=== PATIENT | female | born 1960 | race Caucasian/White ===

== ENCOUNTER 2022-07-16 08:03 | Outpatient (CLI) | payer OTHER, SELFPAY | END 2022-07-16 08:04 | disposition home or self-care (01) | LOC: LKVREF 08:04 | PROVIDERS: Visit Provider Physician Assistant Medical | DX: I10 Essential (primary) hypertension (principal); E66.9 Obesity, unspecified; E01.0 Iodine-deficiency related diffuse (endemic) goiter | CPT/HCPCS: 80053 ==

== ENCOUNTER 2022-09-03 08:51 | Outpatient (CLI) | payer OTHER, SELFPAY ==
--- NOTE | 2022-09-03 09:15 | CRLHL7_ITS ---
For Patients: As a result of the Century Cures Act, medical imaging exams and procedure reports are released immediately into your electronic medical record. You may view this report before your referring provider. If you have questions, please contact your health care provider. BILATERAL SCREENING MAMMOGRAM WITH COMPUTER-AIDED DETECTION AND TOMOSYNTHESIS TECHNIQUE: CC and MLO views were obtained. These mammographic images have been obtained using full-field digital technique. These mammographic images were interpreted with the benefit of computer-aided detection. Breast Tomosynthesis was used in this interpretation. COMPARISON FILM: 08/30/21, 07/27/19, 06/30/18. FINDINGS: The breasts are heterogeneously dense, which may obscure small masses IMPRESSION: There is no radiographic evidence for malignancy. ASSESSMENT: BI-RADS Category 1: Negative RECOMMENDATION: Routine screening mammogram in 1 year. A lay language report of this examination will be provided to the patient. Gerhard Taylor M.D. Diagnostic/Nuclear Medicine Radiologist [email or web address] JOY/Dictated by: Gerhard Taylor MD @ 09/03/2022 10:00:00 AM (Electronically Signed)
== END 2022-09-03 08:52 | disposition home or self-care (01) ==
LOC: MAMMO 08:51
PROVIDERS: PCP Physician Assistant Medical; Visit Provider Physician Assistant Medical
DX: Z12.31 Encounter for screening mammogram for malignant neoplasm of breast (principal); R92.2 Inconclusive mammogram
CPT/HCPCS: 77063; 77067

== ENCOUNTER 2022-09-05 08:12 | Outpatient (CLI) | payer OTHER, SELFPAY | END 2022-09-05 08:13 | disposition home or self-care (01) | LOC: NFLDREF 15:39 | PROVIDERS: PCP Physician Assistant Medical; Referring Provider Physician Assistant Medical; Visit Provider Physician Assistant Medical | DX: Z00.00 Encounter for general adult medical examination without abnormal findings (principal); Z13.6 Encounter for screening for cardiovascular disorders; Z13.1 Encounter for screening for diabetes mellitus; Z13.29 Encounter for screening for other suspected endocrine disorder | CPT/HCPCS: 80061; 82947; 84443 ==

== ENCOUNTER 2023-04-11 13:49 | Outpatient (CLI) | payer OTHER, SELFPAY | END 2023-04-11 13:50 | disposition home or self-care (01) | LOC: LKVREF 13:52 | PROVIDERS: PCP Physician Assistant Medical; Visit Provider Physician Assistant Medical | DX: R55 Syncope and collapse (principal); Z13.29 Encounter for screening for other suspected endocrine disorder | CPT/HCPCS: 84443 ==

== ENCOUNTER 2023-09-05 07:54 | Outpatient (CLI) | payer OTHER, SELFPAY ==
--- NOTE | 2023-09-05 08:15 | CRLHL7_ITS ---
For Patients: As a result of the Century Cures Act, medical imaging exams and procedure reports are released immediately into your electronic medical record. You may view this report before your referring provider. If you have questions, please contact your health care provider. BILATERAL SCREENING MAMMOGRAM WITH COMPUTER-AIDED DETECTION AND TOMOSYNTHESIS TECHNIQUE: CC and MLO views were obtained. These mammographic images have been obtained using full-field digital technique. These mammographic images were interpreted with the benefit of computer-aided detection. Breast Tomosynthesis was used in this interpretation. COMPARISON FILM: 09/03/22, 08/30/21, 07/28/20. FINDINGS: The breasts are heterogeneously dense, which may obscure small masses. IMPRESSION: There is no radiographic evidence for malignancy. ASSESSMENT: BI-RADS Category 1: Negative RECOMMENDATION: Routine screening mammogram in 1 year. A lay language report of this examination will be provided to the patient. Jevon Tovar M.D. Diagnostic Radiologist [email or web address] SP/Dictated by: Jevon Tovar MD @ 09/05/2023 9:27:00 AM (Electronically Signed)
== END 2023-09-05 07:55 | disposition home or self-care (01) ==
LOC: MAMMO 07:55
PROVIDERS: PCP Physician Assistant Medical; Visit Provider Physician Assistant Medical
DX: Z12.31 Encounter for screening mammogram for malignant neoplasm of breast (principal); R92.2 Inconclusive mammogram
CPT/HCPCS: 77063; 77067

== ENCOUNTER 2023-09-26 08:29 | Outpatient (CLI) | payer OTHER, SELFPAY | END 2023-09-26 08:30 | disposition home or self-care (01) | PROVIDERS: PCP Physician Assistant Medical; Visit Provider Physician Assistant Medical | DX: Z00.00 Encounter for general adult medical examination without abnormal findings (principal); E01.0 Iodine-deficiency related diffuse (endemic) goiter; I10 Essential (primary) hypertension; Z13.6 Encounter for screening for cardiovascular disorders; Z13.1 Encounter for screening for diabetes mellitus | CPT/HCPCS: 80053; 80061; 84443; 87086 ==

== ENCOUNTER 2023-10-03 11:06 | Outpatient (CLI) | payer OTHER, SELFPAY ==
--- NOTE | 2023-10-03 11:15 | CRLHL7_ITS ---
For Patients: As a result of the Cures Act, medical imaging exams and procedure reports are released immediately into your electronic medical record. You may view this report before your referring provider. If you have questions, please contact your health care provider. INDICATION: Right thyroid fullness COMPARISON: none TECHNIQUE: Leon scale and color Doppler images were acquired of the thyroid gland. FINDINGS: Cystic nodule within the isthmus measures 6 x 4 x 4 millimeters, TR 1. Isthmus measures 2.9 millimeters. Solid and cystic nodule left thyroid lobe measures 14 x 10 x 12 millimeters, TR 3. Solid near isoechoic nodule left thyroid lobe measures 14 x 10 x 13 millimeters, TR 3. Solid isoechoic nodule right thyroid lobe measures 9 x 8 x 8 millimeters, TR 3. Solid and cystic nodule right thyroid lobe measures 3.9 x 2.9 x 3.3 cm, TR 3. The right lobe measures 6.1 x 2.7 x 3.1 cm and the left lobe measures 4.8 x 2.5 x 2.3 cm in size. The color Doppler images demonstrate normal vascularity. There is no evidence of cervical lymphadenopathy or parathyroid mass. IMPRESSION: 3.9 cm TR 3 nodule right thyroid lobe. FNA recommended. Dictated by Jevon Tovar MD @ 10/04/2023 6:30:39 AM (Electronically Signed)
== END 2023-10-03 11:07 | disposition home or self-care (01) ==
LOC: US 11:07
PROVIDERS: PCP Physician Assistant Medical; Visit Provider Physician Assistant Medical
DX: E07.89 Other specified disorders of thyroid (principal); E04.1 Nontoxic single thyroid nodule
CPT/HCPCS: 76536

== ENCOUNTER 2023-10-15 10:50 | Outpatient (CLI) | payer OTHER, SELFPAY ==
--- NOTE | 2023-10-15 11:15 | CRLHL7_ITS ---
For Patients: As a result of the Century Cures Act, medical imaging exams and procedure reports are released immediately into your electronic medical record. You may view this report before your referring provider. If you have questions, please contact your health care provider. INDICATION : Right thyroid nodule. TECHNIQUE : Ultrasound guided fine needle aspiration of thyroid nodule. Comparison : 10/03/2023 FINDINGS : PROCEDURE: After the informed consent and time-out, multiple fine needle aspirations were obtained from the thyroid nodule. Fine needle performed. 25 gauge needles were used. Lidocaine was used for local anesthesia. The preliminary cytology was adequate for interpretation. Real-time imaging was used for guidance and needle placement. Post imaging ultrasound demonstrates no immediate complication. IMPRESSION : Successful fine needle aspiration right thyroid nodule. Dictated by Jevon Tovar MD @ 10/17/2023 6:54:17 AM (Electronically Signed)
== END 2023-10-15 10:51 | disposition home or self-care (01) ==
LOC: US 10:51
PROVIDERS: PCP Physician Assistant Medical; Visit Provider Physician Assistant Medical
DX: E04.1 Nontoxic single thyroid nodule (principal); E07.89 Other specified disorders of thyroid
CPT/HCPCS: 10005; 88173

== ENCOUNTER 2023-10-29 08:00 | Outpatient (RCR) | payer OTHER, SELFPAY ==
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
== END 2023-10-31 13:59 | disposition home or self-care (01) ==
PROVIDERS: PCP Physician Assistant Medical; Visit Provider Physician Assistant Medical
DX: M25.562 Pain in left knee (principal); Z51.89 Encounter for other specified aftercare
CPT/HCPCS: 97110; 97140; 97161

== ENCOUNTER 2024-09-16 07:37 | Outpatient (CLI) | payer OTHER, SELFPAY ==
--- NOTE | 2024-09-16 08:15 | CRLHL7_ITS ---
For Patients: As a result of the Century Cures Act, medical imaging exams and procedure reports are released immediately into your electronic medical record. You may view this report before your referring provider. If you have questions, please contact your health care provider. INDICATION: BILATERAL SCREENING MAMMOGRAM, ASYMPTOMATIC 67 Y/O FEMALE COMPARISON: 09/05/2023, 09/03/2022, 08/30/2021 TECHNIQUE: Digital mammogram in CC and MLO projections including computer-aided detection (CAD) and tomosynthesis. BREAST COMPOSITION: The breasts are heterogeneously dense, which may obscure small masses. FINDINGS: No suspicious findings. ASSESSMENT: BI-RADS 2 Benign RECOMMENDATION: Annual screening mammogram. A lay language report of this examination will be provided to the patient. Dictated by: Jevon Tovar MD @ 09/16/2024 09:55:58 (Electronically Signed)
== END 2024-09-16 07:38 | disposition home or self-care (01) ==
LOC: MAMMO 07:37
PROVIDERS: PCP Physician Assistant Medical; Visit Provider Physician Assistant Medical
DX: Z12.31 Encounter for screening mammogram for malignant neoplasm of breast (principal); R92.333 Mammographic heterogeneous density, bilateral breasts
CPT/HCPCS: 77063; 77067

== ENCOUNTER 2024-10-07 09:17 | Outpatient (CLI) | payer OTHER, SELFPAY | END 2024-10-07 09:18 | disposition home or self-care (01) | PROVIDERS: PCP Physician Assistant Medical; Visit Provider Physician Assistant Medical | DX: Z00.00 Encounter for general adult medical examination without abnormal findings (principal); E04.1 Nontoxic single thyroid nodule; I10 Essential (primary) hypertension; R82.90 Unspecified abnormal findings in urine; Z79.899 Other long term (current) drug therapy; Z11.4 Encounter for screening for human immunodeficiency virus [HIV]; Z11.59 Encounter for screening for other viral diseases; Z13.820 Encounter for screening for osteoporosis | CPT/HCPCS: 80053; 80061; 82306; 84443; 86703; 86803; 87086 ==

== ENCOUNTER 2024-10-09 08:38 | Outpatient (CLI) | payer OTHER, SELFPAY ==
--- NOTE | 2024-10-09 09:15 | CRLHL7_ITS ---
For Patients: As a result of the Century Cures Act, medical imaging exams and procedure reports are released immediately into your electronic medical record. You may view this report before your referring provider. If you have questions, please contact your health care provider. Indication: Follow-up thyroid nodules Technique: Thyroid ultrasound with grayscale and color Doppler images. Comparison: 10/03/2023 thyroid ultrasound Findings: Right lobe: 6.7 x 3.3 x 3.5 cm. Lesion 1: 4.2 x 3.3 cm solid TR 4 nodule, stable. Lesion 2: 0.9 cm hyperechoic solid nodule, TR 3, stable. Left lobe: 7.1 x 2.9 x 2.6 cm. Lesion 1: 1.7 x 1.5 x 1.2 cm solid isoechoic smooth wider than tall, TR 3. This measured 1.4 x 1.3 x 1.0 cm previously. Lesion 2: 1.3 x 1.2 cm hypoechoic nodule TR 4, stable. Lesion 3: 3.3 x 3.0 cm solid hypoechoic indistinct nodule along the lower pole, TR 4. This was not visualized previously. Isthmus: 4 mm. Diffusely heterogeneous thyroid. Impression: 1. New or newly visible 3.3 cm TR 4 nodule along the inferior left thyroid. Recommend FNA. 2. Other nodules are stable. ACR TI-RADS [email or web address] TR1: Benign No FNA TR2: Not Suspicious No FNA TR3: Mildly Suspicious FNA if greater than or equal to 2.5 cm Follow if greater than or equal to 1.5 cm TR4: Moderately Suspicious FNA if greater than or equal to 1.5 cm Follow if greater than or equal to 1 cm TR5: Highly Suspicious FNA if greater than or equal to 1 cm Follow if greater than or equal to 0.5 cm Dictated by Oj Anaya MD @ 10/13/2024 2:41:51 PM (Electronically Signed)
== END 2024-10-09 08:39 | disposition home or self-care (01) ==
LOC: US 08:38
PROVIDERS: PCP Physician Assistant Medical; Visit Provider Physician Assistant Medical
DX: E04.1 Nontoxic single thyroid nodule (principal)
CPT/HCPCS: 76536

== ENCOUNTER 2024-10-28 07:45 | Outpatient (CLI) | payer OTHER, SELFPAY ==
--- NOTE | 2024-10-28 08:15 | CRLHL7_ITS ---
For Patients: As a result of the Century Cures Act, medical imaging exams and procedure reports are released immediately into your electronic medical record. You may view this report before your referring provider. If you have questions, please contact your health care provider. INDICATION : Left thyroid nodule. TECHNIQUE : Ultrasound-guided fine needle aspiration of thyroid nodule. COMPARISON : 10/09/2024 FINDINGS : PROCEDURE: After the informed consent and time-out, multiple fine needle aspirations were obtained from the thyroid nodule. Fine needle performed. 25 gauge needles were used. Six passes Lidocaine was used for local anesthesia. The preliminary cytology was adequate for interpretation. Real-time imaging was used for guidance and needle placement. Post imaging ultrasound demonstrates no immediate complication. IMPRESSION : Successful fine needle aspiration left thyroid lobe nodule. Dictated by Jevon Tovar MD @ 10/28/2024 8:54:44 AM (Electronically Signed)
== END 2024-10-28 07:46 | disposition home or self-care (01) ==
LOC: US 07:46
PROVIDERS: PCP Physician Assistant Medical; Visit Provider Physician Assistant Medical
DX: E04.1 Nontoxic single thyroid nodule (principal)
CPT/HCPCS: 10005; 76942; 88173